=== PATIENT | male | born 1970 | race Caucasian/White ===

== ENCOUNTER 2023-11-13 13:15 | Emergency (ER) | payer MEDICARE, OTHER ==
[2023-11-13 13:22] VITALS: RESP 18; TEMP 98
[2023-11-13] MEDS: LORazepam 2 MG/ML INJ IM STA (14:29)
--- NOTE | 2023-11-13 14:39 | ED ---
Upper Extremity HPI - General Chief Complaint: Extremity Injury, Upper Stated Complaint: shoulder injury Time Seen by Provider: 11/13/23 14:36 Source: patient, RN notes reviewed Mode of arrival: ambulatory Limitations: no limitations - History of Present Illness Initial Comments: 53-year-old male presented to the ER from [facility] for evaluation of left shoulder injury. Patient entered [facility] for alcohol rehabilitation. He states he would drink up to a half a gallon a day. States has been ongoing for a while and his last drink was approximately 1-1/2 to 2 days ago. He does admit to his days blurring together. Patient denies any history of seizures or delirium tremors with withdrawal. He states he is extremely anxious currently. Denies any SI or HI. He states last night he got up to go to the bathroom and accidentally missed the doorway hitting his left shoulder on the door frame. Patient was sent here for evaluation of left shoulder. He denies any paresthesias or other injuries. He does report pain with range of motion. - Related Data Allergies Allergy/AdvReac Type Severity Reaction Status Date / Time No Known Allergies Allergy Verified 11/13/23 13:21 Review of Systems ROS Statement: Those systems with pertinent positive or pertinent negative responses have been documented in the HPI. ROS Other: All systems not noted in ROS Statement are negative. Past Medical History Past Medical History: Osteoarthritis (OA) History of Any Multi-Drug Resistant Organisms: None Reported Additional Past Surgical History / Comment(s): rotator cuff x2, right hip replacement Past Psychological History: No Psychological Hx Reported Smoking Status: Current every day smoker Past Alcohol Use History: Abuse, Daily, Heavy Past Drug Use History: None Reported, Marijuana General Exam Limitations: no limitations General appearance: alert, in no apparent distress, anxious Head exam: Present: atraumatic, normocephalic, normal inspection Neck exam: Present: normal inspection. Absent: tenderness, meningismus, lymphadenopathy Respiratory exam: Present: normal lung sounds bilaterally. Absent: respiratory distress, wheezes, rales, rhonchi, stridor Cardiovascular Exam: Present: normal rhythm, tachycardia, normal heart sounds Extremities exam: Present: normal inspection (No focal bony tenderness. 2+ left radial pulse. No erythema, bruising, rashes or wounds. Patient has) Neurological exam: Present: alert, oriented X3, CN II-XII intact Psychiatric exam: Present: anxious Skin exam: Present: warm, dry, intact, normal color. Absent: rash Course Vital Signs 11/13/23 11/13/23 13:17 15:04 Temperature 98.0 F Pulse Rate 110 H 98 Respiratory 18 18 Rate Blood Pressure 159/96 143/93 O2 Sat by Pulse 96 96 Oximetry Medical Decision Making - Medical Decision Making Was pt. sent in by a medical professional or institution (, PA, PLUNKET NURSE, urgent care, hospital, or custodial...) When possible be specific @ -Patient sent by [facility] for evaluation of left shoulder injury. Did you speak to anyone other than the patient for history (EMS, parent, family, police, friend...)? What history was obtained from this source @ -No Did you review nursing and triage notes (agree or disagree)? Why? @ -I reviewed and agree with nursing and triage notes Were old charts reviewed (outside hosp., previous admission, EMS record, old EKG, old radiological studies, urgent care reports/EKG's, custodial records)? Report findings @ -No old charts were reviewed Differential Diagnosis (chest pain, altered mental status, abdominal pain women, abdominal pain men, vaginal bleeding, weakness, fever, dyspnea, syncope, headache, dizziness, GI bleed, back pain, seizure, CVA, palpatations, mental health, musculoskeletal)? @Differential Musculoskeletal: Muscular strain, contusion, ligament sprain, fracture, arthritis, septic arthritis, bursitis, cellulitis, muscle spasm, nerve compression, DVT, arterial occlusion, herpes zoster, electrolyte abnormality, tumor.... This is not meant to be in all inclusive list EKG interpreted by me (3pts min.). @ -None X-rays interpreted by me (1pt min.). @ -Left shoulder x-rays interpreted by me negative for acute osseous process. CT interpreted by me (1pt min.). @ -None done U/S interpreted by me (1pt. min.). @ -None done What testing was considered but not performed or refused? (CT, X-rays, U/S, labs)? Why? @ -None What meds were considered but not given or refused? Why? @ -None Did you discuss the management of the patient with other professionals (professionals i.e. , PAULA, PLUNKET NURSE, lab, RT, psych nurse, social science analyst, rn eligibility, teacher, security officers and guards, rifle case repairer)? Give summary @ -No Was smoking cessation discussed for >3mins.? @ -No Was critical care preformed (if so, how long)? @ -No Were there social determinants of health that impacted care today? How? (Homelessness, low income, unemployed, alcoholism, drug addiction, transportation, low edu. Level, literacy, decrease access to med. care, [facility], rehab)? @ -Patient is currently residing at [facility] for your alcoholism. Was there de-escalation of care discussed even if they declined (Discuss DNR or withdrawal of care, Hospice)? DNR status @ -No What co-morbidities impacted this encounter? (DM, HTN, Smoking, COPD, CAD, Cancer, CVA, ARF, Chemo, Hep., AIDS, mental health diagnosis, sleep apnea, morbid obesity)? @ -Alcoholism Was patient admitted / discharged? Hospital course, mention meds given and route, prescriptions, significant lab abnormalities, going to OR and other pertinent info. @ -Discharge. 53-year-old male presented to the ER with a chief complaint of left shoulder injury. Patient was sent by [facility] for evaluation. Patient is current residing at [facility] due to alcoholism. Hypokalemia/nausea History and physical exam completed. Vitals with tachycardia at 110, blood pres sure 159/96. Tachycardia believed to be due to anxiety and withdrawal. unremarkable patient in no signs of acute distress but is anxious and shaking on exam. Left upper extremity neurovascular intact. Patient has full ROM. No focal bony tenderness. No overlying erythema, bruising, rash or wounds. Patient received IM Ativan for anxiety control in the ER, with improvement. Left shoulder x-rays negative for acute osseous process. Upon reevaluation, patient resting comfortably. Patient reporting mild improvement of symptoms. Results discussed with patient, all questions answered. Advise close follow-up with PCP I also advised [id number] Tylenol and Motrin for pain control. Patient stable for discharge at this time. Return parameters discussed. Patient discharged in stable condition back to [facility]. Patient verbally expressed understanding agreement care plan. Case discussed with ED attending, Dr. Lyn. Undiagnosed new problem with uncertain prognosis? @ -No Drug Therapy requiring intensive monitoring for toxicity (Heparin, Nitro, Insulin, Cardizem)? @ -No Were any procedures done? @ -No Diagnosis/symptom? @ -Shoulder contusion Acute, or Chronic, or Acute on Chronic? @ -Acute Uncomplicated (without systemic symptoms) or Complicated (systemic symptoms)? @ -Uncomplicated Side effects of treatment? @ -No Exacerbation, Progression, or Severe Exacerbation? @ -No Poses a threat to life or bodily function? How? (Chest pain, [place], AL, pneumonia, PE, COPD, DKA, ARF, appy, cholecystitis, CVA, Diverticulitis, Homicidal, Suicidal, threat to staff... and all critical care pts) @ -No - Radiology Data Radiology results: report reviewed, image reviewed Disposition Clinical Impression: Shoulder contusion Disposition: HOME SELF-CARE Condition: Stable Instructions (If sedation given, give patient instructions): Shoulder Sprain (ED) Additional Instructions: Continue to move left shoulder. I recommend [id number] Tylenol and Motrin for pain control. Follow-up with PCP. Return to the ER for any new or worsening concerns. Is patient prescribed a controlled substance at d/c from ED?: No Referrals: None,Stated [Primary Care Provider] - 1-2 days Forms: Area PCPs Time of Disposition: 15:12
--- NOTE | 2023-11-13 14:46 | XR ---
EXAMINATION TYPE: XR shoulder complete LT DATE OF EXAM: 11/13/2023 CLINICAL HISTORY: pain COMPARISON: NONE TECHNIQUE: Three views of the left shoulder are obtained. FINDINGS: There is no acute fracture/dislocation evident. The acromioclavicular and glenohumeral alcira int spaces appear within normal limits. The visualized ribs are intact and unremarkable. IMPRESSION: 1. There is no acute fracture or dislocation. ICD 10 NO FRACTURE, INITIAL EVALUATION
[2023-11-13 15:05] VITALS: BP 143/93; PULSE 98
== END 2023-11-13 15:27 | disposition home or self-care (01) ==
LOC: EC 13:15
DX: S40.012A Contusion of left shoulder, initial encounter (principal); F17.200 Nicotine dependence, unspecified, uncomplicated; F10.10 Alcohol abuse, uncomplicated; W22.09XA Striking against other stationary object, initial encounter
CPT/HCPCS: 73030; 99283; 96372; J2060